=== PATIENT | male | born 1955 | race Caucasian/White ===

== ENCOUNTER 2021-02-04 12:00 | Emergency (ER) | payer BC, SELFPAY ==
[2021-02-04 12:10] VITALS: BP 128/84; PULSE 49; RESP 16; TEMP 36.1; O2SAT 100
--- NOTE | 2021-02-04 13:35 | ED.ABDPAIN ---
HPI - Abdominal Pain General Chief Complaint: Abdominal Pain Stated Complaint: abdominal pain/sore nipple Time Seen by Provider: 02/04/21 12:20 Source: patient, family and RN notes reviewed Mode of arrival: ambulatory Limitations: no limitations History of Present Illness HPI narrative: Patient presents today complaining of left lower abdominal pain that has been intermittent for the past 2 days. He is not currently experiencing any abdominal pain, but did prior to arrival. Right denies any nausea, vomiting, diarrhea, constipation, fever, or any urinary symptoms. Denies back pain or flank pain. He describes his pain yesterday as debilitating and reports it lasted about 2 hours. States the pain radiates to the rest of his anterior chest and abdomen when it is occurring. Denies any blood or mucus in his stool. Denies any exacerbating factors. When his pain is present he rates it 6?7/10 and states he took a dose of Tylenol 2 days ago that helped slightly. Patient also states some right nipple pain for at least the last 2 months. Denies any discharge or redness, but would like it looked at today. He does not have a primary care provider. MD elicited complaint: abdominal pain Related Data Home Medications Medication Instructions Recorded Confirmed No Home Medications 02/04/21 02/04/21 Allergies Allergy/AdvReac Type Severity Reaction Status Date / Time No Known Allergies Allergy Verified 02/04/21 12:14 Review of Systems Review of Systems: Narrative: CONSTITUTIONAL: Denies body aches, fever, chills, or sweats. EYES: Denies visual changes, redness, or discharge. ENT: Denies rhinorrhea, congestion, sore throat, or otalgia. CARDIOVASCULAR: Denies chest pain, palpitations, or edema. RESPIRATORY: Denies cough or dyspnea. GASTROINTESTINAL: Denies nausea, vomiting, or diarrhea. + Abdominal pain GENITOURINARY: Denies dysuria or hematuria. SKIN: Denies rash, itching, or wounds.+ Right nipple pain MUSCULOSKELETAL: Denies back pain, joint pain, or myalgia. NEUROLOGIC: Denies headache, numbness, tingling, or weakness. PSYCH: Denies depression or anxiety. [facility] Past Medical History Medical History (Updated 02/04/21 @ 13:42 by Susan Gupta, [employer], ) High cholesterol Hypertension Social History Social History Gender identity (if verbalized by the patient): Male Comments At time of signature, I have reviewed and agree with nursing past medical, surgical, social and family history unless otherwise noted. Please see nursing chart for further information. There is no relevant family history pertinent to the presenting complaint Exam Narrative: Exam Narrative: GENERAL: Well-appearing, well-nourished, and in no acute distress. HEAD: Normocephalic, atraumatic. EYES: EOMI. No redness or drainage. Conjunctivae normal. ENT: Mucous membranes pink and moist. NECK: Normal AROM. CHEST: No respiratory distress. Clear to auscultation. Mild firmness to the lateral edge of the right areola without erythema or edema. Mild tenderness to palpation. No abnormality noted to the nipple. No discharge. HEART: Regular rate and rhythm. No murmur appreciated. Normal peripheral pulses. ABDOMEN: Soft, nondistended, hyperactive bowel sounds. Mild tenderness to the left lower quadrant as well as the periumbilical region. No rebound or guarding. No masses palpated. MUSCULOSKELETAL: No bony tenderness. EXTREMITIES: Normal range of motion. No edema. SKIN: Warm, dry, no rash. Capillary refill normal. Normal skin turgor. NEURO: No focal deficits. Alert and oriented x3. Gait steady. PSYCH: Normal affect. No signs of depression or anxiety. Course Vital Signs Vital signs: Vital Signs Temperature 97 F L 02/04/21 12:10 Pulse Rate 49 L 02/04/21 12:10 Respiratory Rate 16 02/04/21 12:10 Blood Pressure 128/84 02/04/21 12:10 Pulse Oximetry 100 02/04/21 12:10 Temperature 97 F L 02/04/21 12:10 Pulse Rate 49 L 02/04
== END 2021-02-04 12:57 | disposition short-term general hospital (02) ==
PROVIDERS: Emergency Provider Nurse Practitioner
DX: R10.32 Left lower quadrant pain (principal); E78.00 Pure hypercholesterolemia, unspecified; I10 Essential (primary) hypertension
CPT/HCPCS: 99202; G0463

== ENCOUNTER 2021-02-04 13:13 | Emergency (ER) | payer BC, SELFPAY ==
--- NOTE | ~2021-02-04 | CT_ITS ---
EXAMINATION: CT abdomen pelvis w con DATE: 02/04/2021 17:01 INDICATION: Left lower quadrant abdominal pain. TECHNIQUE: Computed tomography (CT) of the abdomen and pelvis was performed with 100 mL Omnipaque 350 intravenous contrast. Automated exposure control and iterative reconstruction technique were employe d. The dose-length product was 681.80 mGy-cm. COMPARISON: None. FINDINGS: The visualized portions of the lung bases demonstrate mild atelectasis. A calcified right l kymberly nodule is consistent with old granulomatous disease. No pleural effusion. The heart size is caitie l. No pericardial effusion. There are cysts in the liver measuring up to 9 mm. There are gallstones i n the gallbladder, which is normal in size. The spleen, pancreas, and right adrenal gland are normal. There is a 2.0 cm mass in left adrenal gland measuring soft tissue attenuation. There are cysts in t he kidneys measuring up to 1.8 cm on the left. The prostate is mildly enlarged. There is diverticulos is of the colon without evidence of diverticulitis. The appendix is normal. There are no dilated loop s of bowel. There are no pathologically enlarged lymph nodes. There is no free intraperitoneal fluid. There is mild thoracolumbar spondylosis. There is chronic height loss of T11 and T12 vertebral adelina s. IMPRESSION: 1. No specific etiology for the patient's symptoms. 2. 2.0 cm left adrenal mass. 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 3. Cholelithiasis. No evidence of acute cholecystitis. Reviewed, dictated and finalized at location A. IMPRESSION: 1. No specific etiology for the patient's symptoms. 2. 2.0 cm left adrenal mass. In the absence of known malignancy, this finding i s likely an adenoma. 3. Cholelithiasis. No evidence of acute cholecystitis.
[2021-02-04 13:15] VITALS: BP 169/73; PULSE 52; RESP 20; TEMP 36.6; O2SAT 98
[2021-02-04 13:39] LABS: Basophils Absolute Auto 0.1 K/mm3 (0.0-0.1); Eosinophils Absolute Auto 0.1 K/mm3 (0-0.3); Eosinophils Percent Auto 1.4 % (0-4.4); Hematocrit 46.8 % (42.0-52.0); Hemoglobin 15.7 g/dL (14.0-18.0); Immature Granulocyte Absolute 0.04 K/mm3 (0.00-0.031); Immature Granulocyte Percent A 0.4 % (0-0.5); Lymphocytes Absolute Auto 2.84 K/mm3 (0.9-3.2); Lymphocytes Percent Auto 30.8 % (18.3-44.2); Mean Corpuscular HGB Conc 33.5 g/dl (32-36); Mean Corpuscular Hemoglobin 32.2 pg (26-34); Mean Corpuscular Volume 95.9 fl (80-100); Mean Platelet Volume 10.3 fl (7.4-10.4); Monocytes Percent Auto 10.3 % (2.6-8.5); Neutrophils Absolute Auto 5.2 K/mm3 (1.3-6.7); Neutrophils Percent Auto 56.1 % (45.5-73.1); Platelet Count Result 192 k/mm3 (150-375); Red Blood Count 4.88 M/mm3 (4.6-6.20); Red Cell Distribution Width 12.3 % (11.5-14.5); White Blood Count 9.2 K/mm3 (4.5-10.0)
[2021-02-04 13:42] LABS: Add Urine Microscopic? NO; Appearance Urine Clear (Clear); Bilirubin Urine Negative (Negative); Blood Urine Negative (Negative); Color Urine Yellow (Yellow); Glucose Urine UA Negative (Negative); Ketones Urine Negative (Negative); Leukocyte Esterase Ur Negative LEU/UL (Negative); Nitrate Urine Negative (Negative); Protein Urine Negative (Negative); Specific Grav Ur 1.008 (1.001-1.035); Urobilinogen Urine Negative mg/dL (<2.0)
[2021-02-04 13:50] LABS: Alanine Aminotransferase 22 U/L (4-50); Albumin Level 4.6 g/dL (3.5-5.1); Alkaline Phosphatase 75 U/L (38-126); Anion Gap 6 mmol/L (8-16); Aspartate Amino Transferase 27 U/L (17-59); Bilirubin,Total 0.8 mg/dL (0.2-1.3); Blood Urea Nitrogen 13 mg/dL (9-20); Calcium 9.5 mg/dL (8.4-10.2); Carbon Dioxide 30 mmol/L (22-30); Chloride 104 mmol/L (98-107); Estimated CRCL calculation 85 ml/min; Estimated Glomerular Filt Rate > 60; Glucose 99 mg/dL (75-110); Lipase 159 U/L (23-300); Potassium 4.2 mmol/L (3.4-5.0); Sodium 140 mmol/L (137-145)
--- NOTE | 2021-02-04 16:17 | ED.ABDPAIN ---
HPI - Abdominal Pain General Chief Complaint: Abdominal Pain Stated Complaint: abd pain Time Seen by Provider: 02/04/21 15:55 History of Present Illness HPI narrative: LLQ pain since Thursday. Seemed to get better that night then came back. Actually feeling significantly better at this time. Reports that when it is bad it feels like broken glass in his intestines. No nausea, fever, diarrhea, constipation. Related Data Home Medications Medication Instructions Recorded Confirmed No Home Medications 02/04/21 02/04/21 Allergies Allergy/AdvReac Type Severity Reaction Status Date / Time No Known Allergies Allergy Verified 02/04/21 12:14 Review of Systems Review of Systems: All systems reviewed & are unremarkable except as noted in HPI and below Constitutional: Constitutional: Denies chills, Denies fever(s) and Denies weakness Cardiovascular: Cardiovascular: Denies chest pain Respiratory: Respiratory: Denies dyspnea Gastrointestinal: Gastrointestinal: Reports as per HPI Genitourinary: Genitourinary: Denies hematuria, Denies dysuria and Denies urinary frequency Neurologic: Denies dizziness and Denies weakness [facility] Past Medical History Medical History High cholesterol Hypertension Social History Social History Gender identity (if verbalized by the patient): Male Exam Const: General: healthy appearing, no acute distress and alert Orientation/consciousness: patient oriented x3 HENMT: Head: normal to inspection Neck: Neck: normal visual inspection Resp: Effort & Inspection: normal respiratory effort Auscultation: clear to auscultation bilaterally, no rales, no rhonchi and no wheezes Cardio: Jugular venous distension: no JVD Rate: regular rate Rhythm: regular rhythm Heart sounds: no murmurs GI: Inspection: non-distended GI Palp: Yes Soft to palpation, Yes Tenderness to palpation present (GI) (mild LLQ), No Guarding due to palpation present (GI) and No Rebound tenderness present Auscultation: normal bowel sounds Skin: General skin exam: normal color Neuro: General: patient oriented x3 and moves all extremities Speech: normal speech Gait exam (Neuro): Normal gait present Extrem: General: normal to inspection and no edema Psych: Appearance: well kempt Affect: normal affect Course Vital Signs Vital signs: Vital Signs Temperature 36.6 C 02/04/21 13:15 Pulse Rate 52 L 02/04/21 13:15 Respiratory Rate 20 02/04/21 13:15 Blood Pressure 169/73 H 02/04/21 13:15 Pulse Oximetry 98 02/04/21 13:15 Temperature 36.6 C 02/04/21 13:15 Pulse Rate 50 L 02/04/21 18:13 Respiratory Rate 13 02/04/21 18:13 Blood Pressure 139/83 02/04/21 18:13 Pulse Oximetry 100 02/04/21 18:13 MDM - Abdominal Pain Differential Diagnosis Differential diagnosis: Likely calculus of kidney, constipation and diverticulitis Medical Records Attestation: I reviewed the patient's medical records. Lab Data Attestation: I reviewed the patient's lab results. Result diagrams: 02/04/21 13:25 02/04/21 13:25 Labs: Lab Results 02/04/21 02/04/21 02/04/21 Range/Units 13:25 13:25 13:32 WBC 9.2 (4.5-10.0) K/mm3 RBC 4.88 (4.6-6.20) M/mm3 Hgb 15.7 (14.0-18.0) g/dL Hct 46.8 (42.0-52.0) % MCV 95.9 (80-100) fl MCH 32.2 (26-34) pg MCHC 33.5 (32-36) g/dl RDW 12.3 (11.5-14.5) % Plt Count 192 (150-375) k/mm3 MPV 10.3 (7.4-10.4) fl Immature Gran % (Auto) 0.4 (0-0.5) % Neut % (Auto) 56.1 (45.5-73.1) % Lymph % (Auto) 30.8 (18.3-44.2) % [place] % (Auto) 10.3 H (2.6-8.5) % Eos % (Auto) 1.4 (0-4.4) % Baso % (Auto) 1.0 (0.2-1.2) % Lymph # (Auto) 2.84 (0.9-3.2) K/mm3 [place] # (Auto) 1.0 H (0.1-0.6) K/mm3 Eos # (Auto) 0.1 (0-0.3) K/mm3 Baso # (Auto) 0.1 (0.0-0.1) K/mm3 Abs Im
[2021-02-04 18:13] VITALS: BP 139/83; PULSE 50; RESP 13; O2SAT 100
== END 2021-02-04 18:16 | disposition home or self-care (01) ==
PROVIDERS: Emergency Provider Emergency Medicine
DX: R10.32 Left lower quadrant pain (principal); E78.00 Pure hypercholesterolemia, unspecified; I10 Essential (primary) hypertension; K80.20 Calculus of gallbladder without cholecystitis without obstruction; E27.8 Other specified disorders of adrenal gland
CPT/HCPCS: 36415; 74177; 80053; 81003; 83690; 85025; 99284; Q9967